=== PATIENT | female | born 1950 | race Caucasian/White ===

== ENCOUNTER 2019-04-21 07:26 | Day surgery (SDC) | payer OTHER, BC ==
[2019-04-19 10:47] VITALS: BMI 28.7
[2019-04-21 07:55] VITALS: TEMP 98.1
[2019-04-21] MEDS ORDERED: PROPOFOL 20 ML ONE ×4 (08:17)
[2019-04-21 09:07] VITALS: BP 140/81; PULSE 62
--- NOTE | 2019-04-23 18:24 | PATH ---
Surgical Pathology Report Patient Name: VIKRAM CONN [facility]. Rec. #: [id number] /Age/Gender: 1950 (Age: 68) / F Account: [id number] Location: [facility] Taken: 04/21/2019 Received: 04/21/2019 Reported: 04/23/2019 Physicians: Eitan Bernstein M.D. Specimen(s) Received POLYP PROXIMAL RIGHT COLON X2 Clinical History Screening Postoperative diagnosis: Diverticulosis, colon polyps Final Diagnosis PROXIMAL RIGHT COLON POLYP X 2, POLYPECTOMY: TUBULAR ADENOMA, TWO FRAGMENTS. Electronically Signed Efraín Kelly M.D. Gross Description Received in formalin, labeled "biopsy polyp proximal right colon x2" are 2 mart, irregular portions of soft tissue measuring 0.2 and 0.3 cm. in greatest dimension. The specimens are submitted in toto in one cassette. 04/22/201904/22/2019
== END 2019-04-21 09:10 | disposition home or self-care (01) ==
LOC: FASU-ENDO 07:26
PROVIDERS: ATTEND Internal Medicine Gastroenterology
PROC: 0DBK8ZX Excision of Ascending Colon, Via Natural or Artificial Opening Endoscopic, Diagnostic (ICD-10-PCS; principal; 2019-04-21 08:17)
DX: Z12.11 Encounter for screening for malignant neoplasm of colon (principal); K57.30 Diverticulosis of large intestine without perforation or abscess without bleeding; D12.2 Benign neoplasm of ascending colon
CPT/HCPCS: 88305-TC